=== PATIENT | female | born 1995 | race Two or more races ===

== ENCOUNTER 2016-11-29 22:26 | Emergency (ER) | payer MEDICAID, OTHER ==
[~2016-11-29] VITALS: Ht 162.6 cm; Wt 131.5 kg
[2016-11-29 23:01] VITALS: BP 134/78
== END 2016-11-30 04:15 | disposition left against medical advice (07) ==
LOC: ER 22:31
DX: M54.2 Cervicalgia (principal); M54.9 Dorsalgia, unspecified; Z53.21 Procedure and treatment not carried out due to patient leaving prior to being seen by health care provider; V49.9XXA Car occupant (driver) (passenger) injured in unspecified traffic accident, initial encounter; Y93.89 Activity, other specified; Y99.8 Other external cause status; Y92.89 Other specified places as the place of occurrence of the external cause
CPT/HCPCS: 72040; 81025; 99281; L0120

== ENCOUNTER 2019-07-06 09:59 | Emergency (ER) | payer MEDICAID, OTHER ==
[~2019-07-06] VITALS: Ht 162.6 cm; Wt 125.6 kg
[2019-07-06 11:37] LABS: Urine Bacteria FEW /hpf (None Seen); Urine Blood 2+ /uL (Negative); Urine Mucus FEW (None Seen); Urine Specific Gravity 1.008 (1.001-1.035); Urine WBC 1 /hpf (0 - 5)
[2019-07-06 12:48] VITALS: BP 118/63
== END 2019-07-06 12:53 | disposition home or self-care (01) ==
LOC: ER 09:59
DX: G40.409 Other generalized epilepsy and epileptic syndromes, not intractable, without status epilepticus (principal); F41.9 Anxiety disorder, unspecified; F32.9 Major depressive disorder, single episode, unspecified
CPT/HCPCS: 70450; 81001; 81025